=== PATIENT | female | born 1995 | race Native Hawaiian/Other Pacific Islander ===

== ENCOUNTER 2017-02-05 09:25 | Outpatient (CLI) | payer OTHER ==
[~2017-02-05 09:25] MED LIST: IBUP800T30 PO
== END 2017-02-05 19:05 | disposition home or self-care (01) ==
LOC: US 09:25
DX: M79.661 Pain in right lower leg (principal)

== ENCOUNTER 2018-10-19 20:53 | Emergency (ER) | payer OTHER ==
[~2018-10-19] VITALS: Ht 162.6 cm; Wt 99.8 kg
[2018-10-19 21:48] VITALS: BP 130/85; TEMP 99.1
== END 2018-10-19 21:50 | disposition home or self-care (01) ==
LOC: ED 20:53
PROC: 0HQGXZZ Repair Left Hand Skin, External Approach (ICD-10-PCS; principal; 2018-10-19)
PROC: 0HQFXZZ Repair Right Hand Skin, External Approach (ICD-10-PCS; 2018-10-19)
DX: S61.211A Laceration without foreign body of left index finger without damage to nail, initial encounter (principal); S61.210A Laceration without foreign body of right index finger without damage to nail, initial encounter; W45.8XXA Other foreign body or object entering through skin, initial encounter; Y92.89 Other specified places as the place of occurrence of the external cause
CPT/HCPCS: 99283

== ENCOUNTER 2018-10-26 11:20 | Emergency (ER) | payer OTHER ==
[~2018-10-26] VITALS: Ht 162.6 cm; Wt 99.8 kg
[2018-10-26 11:29] VITALS: BP 115/67; TEMP 98
== END 2018-10-26 11:35 | disposition home or self-care (01) ==
LOC: ED 11:20
DX: Z48.02 Encounter for removal of sutures (principal)

== ENCOUNTER 2020-01-04 06:32 | Emergency (ER) | payer OTHER ==
[~2020-01-04] VITALS: Ht 162.6 cm; Wt 90.7 kg
[2020-01-04 07:26] LABS: PLATELET COUNT 285 K/uL (152-353)
[2020-01-04 07:31] LABS: POTASSIUM 3.8 mmol/L (3.6-5.2)
[2020-01-04 09:09] VITALS: BP 118/68; TEMP 99.3
== END 2020-01-04 09:06 | disposition home or self-care (01) ==
LOC: ED 06:32
PROVIDERS: Emergency Medicine
DX: J06.9 Acute upper respiratory infection, unspecified (principal); R50.9 Fever, unspecified; J02.9 Acute pharyngitis, unspecified
CPT/HCPCS: 36415; 80053; 83605; 85027; 87040; 87502; 87651; 96365; 99284; J0696

== ENCOUNTER 2021-04-11 12:54 | Emergency (ER) | payer OTHER ==
[~2021-04-11] VITALS: Ht 162.6 cm; Wt 99.8 kg
[2021-04-11 14:14] VITALS: BP 113/56; TEMP 99.1
== END 2021-04-11 14:14 | disposition home or self-care (01) ==
LOC: ED 12:54
DX: R07.89 Other chest pain (principal)
CPT/HCPCS: 99283

== ENCOUNTER 2021-06-26 08:31 | Emergency (ER) | payer OTHER ==
[~2021-06-26] VITALS: Ht 162.6 cm; Wt 99.8 kg
[2021-06-26 08:40] VITALS: BP 123/77; TEMP 98.1
== END 2021-06-26 09:31 | disposition home or self-care (01) ==
LOC: ED 08:31
DX: J06.9 Acute upper respiratory infection, unspecified (principal)
CPT/HCPCS: 99282

== ENCOUNTER 2021-07-25 21:15 | Emergency (ER) | payer OTHER ==
[~2021-07-25] VITALS: Ht 162.6 cm; Wt 99.8 kg
[2021-07-25 22:18] LABS: PLATELET COUNT 261 K/uL (152-353); POTASSIUM 3.6 mmol/L (3.6-5.2)
[2021-07-25 23:55] VITALS: BP 122/48; TEMP 101
== END 2021-07-25 23:55 | disposition home or self-care (01) ==
LOC: ED 21:15
PROVIDERS: Hospitalist
DX: N30.10 Interstitial cystitis (chronic) without hematuria (principal); R50.9 Fever, unspecified; Z20.822 Contact with and (suspected) exposure to COVID-19
CPT/HCPCS: 36415; 80048; 81000; 81025; 85027; 87502; 87635; 87651; 96361; 96365; 96375; 99284; J0696; J1885; J2405; Q9963; U0003

== ENCOUNTER 2021-10-12 11:14 | Emergency (ER) | payer OTHER ==
[~2021-10-12] VITALS: Ht 162.6 cm; Wt 99.8 kg
[2021-10-12 11:25] VITALS: TEMP 98
[2021-10-12 11:44] LABS: PLATELET COUNT 259 K/uL (152-353)
[2021-10-12 11:53] LABS: POTASSIUM 3.9 mmol/L (3.6-5.2)
[2021-10-12 13:25] VITALS: BP 124/83
== END 2021-10-12 13:30 | disposition home or self-care (01) ==
LOC: ED 11:14
PROVIDERS: Emergency Medicine
DX: R07.89 Other chest pain (principal)
CPT/HCPCS: 36415; 80053; 81000; 81025; 84484; 85027; 85610; 93005; 99283

== ENCOUNTER 2022-01-31 11:45 | Emergency (ER) | payer OTHER ==
[~2022-01-31] VITALS: Ht 162.6 cm; Wt 99.8 kg
[2022-01-31 11:45] VITALS: TEMP 98.3
[2022-01-31 12:22] LABS: PLATELET COUNT 251 K/uL (152-353)
[2022-01-31 12:28] LABS: POTASSIUM 3.9 mmol/L (3.6-5.2)
[2022-01-31 12:55] VITALS: BP 116/68
== END 2022-01-31 12:59 | disposition home or self-care (01) ==
LOC: ED 11:55
PROVIDERS: Emergency Medicine
DX: R51.9 Headache, unspecified (principal)
CPT/HCPCS: 80048; 80307; 81002; 81025; 85027; 96374; 96375; 99284; J2175; J2405

== ENCOUNTER 2022-03-11 16:40 | Outpatient (CLI) | payer OTHER | END 2022-03-11 19:02 | disposition home or self-care (01) | LOC: RAD 16:40 | PROVIDERS: ATTEND Physician Assistant | DX: U07.1 COVID-19 (principal); R06.02 Shortness of breath ==

== ENCOUNTER 2022-05-14 20:46 | Outpatient (CLI) | payer OTHER | END 2022-05-14 22:00 | disposition home or self-care (01) | LOC: RAD 20:46 | PROVIDERS: ATTEND Registered Nurse | DX: M54.50 Low back pain, unspecified (principal) ==

== ENCOUNTER 2022-09-06 13:56 | Emergency (ER) | payer OTHER ==
[~2022-09-06] VITALS: Ht 162.6 cm; Wt 99.8 kg
[2022-09-06 14:00] VITALS: BP 145/71; TEMP 97.5
[2022-09-06 14:27] LABS: PLATELET COUNT 286 K/uL (152-353)
[2022-09-06 14:33] LABS: POTASSIUM 3.8 mmol/L (3.6-5.2)
== END 2022-09-06 15:31 | disposition home or self-care (01) ==
LOC: ED 13:56
PROVIDERS: Emergency Medicine
DX: J20.9 Acute bronchitis, unspecified (principal); J18.9 Pneumonia, unspecified organism
CPT/HCPCS: 36415; 80053; 81025; 83880; 85027; 85379; 99283

== ENCOUNTER 2023-02-02 15:37 | Outpatient (CLI) | payer OTHER | END 2023-02-02 20:37 | disposition home or self-care (01) | LOC: RAD 15:37 | PROVIDERS: ATTEND Nurse Practitioner | DX: S99.821A Other specified injuries of right foot, initial encounter (principal); M79.671 Pain in right foot; Y92.89 Other specified places as the place of occurrence of the external cause ==